=== PATIENT | female | born 1980 | race Caucasian/White ===

== ENCOUNTER 2016-10-31 12:52 | Inpatient (IN) | payer OTHER ==
[2016-10-31] VITALS (8 sets, daily range): BP systolic 124–140; BP diastolic 80–92
[~2016-10-31] VITALS: Ht 165.1 cm; Wt 81.6 kg
--- NOTE | ~2016-10-31 | PR ---
[place], [place] PROGRESS NOTE NAME: TARIK JACKSON [facility] #: [id number] UNIT #: [id number] ROOM: [place] [address] DOCTOR: EFRA ESPINOSA MD BIRTHDATE: [birth year] DOS: 11/02/2016 DISCHARGE DIAGNOSES: 1. Prescription opioid medication abuse. 2. Drug overdose with Tylenol PM, did not reach toxic levels. 3. Opiate withdrawal with hallucinations, resolved. 4. The patient refused transfer to a psych facility. 5. Lumbar spondylosis and chronic back pain for which the patient has been on disability for a long time. 6. History of bronchial asthma. The patient presented to the Emergency Department when her brought her over because she confessed of taking 30 pills of Tylenol PM. Poison control was contacted who recommended sequenced Tylenol levels and treatment with N-acetylcysteine, which was later discontinued. Suicidal overdose with Tylenol, but only reached nontoxic levels in her blood. 9. Major depression, recurrent, evaluated by Dr. Morales and Dr. Wilson. 10. Hypokalemia, being treated with extra dose of potassium supplement. The patient was treated for suspected Tylenol PM intentional drug overdose for suicide attempt. The patient was treated on recommendations of Poison Control, buy her Tylenol levels never reached toxic levels as they peaked at 90, stayed below 100 and then started improving. Treatment was stopped with N-acetylcysteine and there were no signs of any liver toxicity. The patient with opioid withdrawal. According to the patient and her family, she took her one-month supply, which is 120 pills of Vicodin in less than 2 weeks and then ran out of medicines and apparently she was undergoing opioid withdrawal, which was followed and treated by Dr. Morales and ultimately she was seen by Dr. Freedom Wilson, the clinical psychologist. The patient was recommended to go to a psych facility for treatment prior to being discharged, but she refused. Some complaints of tongue swelling, which has completely resolved according to the patient and she is talking normally once she figured out that the tongue swelling may delay her discharge to home today. She was treated with IV Solu-Medrol. No obvious signs of any allergy. 11. Syncope. Chronic complaints of lower back pains and chronic pain syndrome for which she has been on Vicodin, which will not be prescribed to her anymore because of the opioid misuse. Chronic primary insomnia for which she was taking Ambien at home, which has been stopped again because of the medication abuse issue. Chronic generalized anxiety disorder for which patient was taking Klonopin on regular basis. The patient has been detoxified during her stay at the [place], [place] PROGRESS NOTE NAME: TARIK JACKSON UNIT #: [id number] ROOM: [place] [address] DOCTOR: JESÚS JORDAN,EFRA Barrera BIRTHDATE: [birth year] and she has no withdrawal symptoms anymore and she has been therefore cleared for discharge by Dr. Morales and Dr. Freedom Wilson as she is not suicidal and she is asymptomatic, no complaints of any palpitation, no chest pain. No GI or urinary symptoms. Hypokalemia today, which is improving, being treated with extra dose of potassium. Dr. Freedom Wilson and Dr. True Morales have both agreed to follow her as an outpatient. The patient has been written prescriptions for more than a month on all of her medications at the time of discharge, so that she does not run out of her routine medications, but her Vicodin, Klonopin and Ambien have been stopped. LABORATORY DATA: Urine drug screen was negative on admission signifying that she was not taking her medications as prescribed, and according to the patient's , the patient takes excessive doses of Ambien, Vicodin and Klonopin at home. Potassium level of 3.4, being addressed with extra potassium dose today. Normal serum electrolytes. Blood sugar 117, normal CBC. DISCHARGE MANAGEMENT: Amlodipine 5 mg a day, loratadine 10 mg a day, fluticasone inhalation daily, levothyroxine 25 mcg daily, Singulair 10 mg a day. Follow up with Dr. Freedom Wilson and follow with Dr. True Morales. EFRA ESPINOSA MD CM:PNTRANS 1846 2 EFRA ESPINOSA MD 11/03/16332 interface
--- NOTE | ~2016-10-31 | CON ---
[place], [place] REPORT OF CONSULTATION NAME: TARIK JACKSON UNIT #: [id number] ROOM: [place] [address] DOCTOR: ALIE PATTERSON MD BIRTHDATE: [birth year] DOS: 11/01/2016 CHIEF COMPLAINT: "I have been feeling so depressed." HISTORY OF PRESENT ILLNESS: This is a 36-year-old white female who was admitted due to an intentional overdose of Tylenol. The patient states that she has been feeling very depressed for several months despite being placed on Effexor, which has been ineffective. She endorsed poor sleep with difficulty falling asleep, sleep continuity disturbance, and glass worker awakening and voices that at times she may only get a few hours of sleep at night and can go days without sleep. When she awakens, she feels absolutely horrible with marked anergia, anhedonia, hopeless and helpless feelings, crying spells, and inability to cope. Most recently within the last week or two, she also endorses positive auditory hallucinations. She can hear the voices and they do frighten her, but she cannot totally make out what they are saying. Other than the Effexor, she voices no other medication trials, but is willing to allow me to adjust her medicines accordingly. PAST MEDICAL HISTORY: Remarkable for lumbar spondylosis, chronic back pain, and bronchial asthma. MENTAL STATUS: She is alert and oriented. Mood is very depressed. Affect is flat and blunted with constricted range. There is no azael or hypomania. She endorses positive auditory hallucinations. There is no voice delusion or paranoia. Memory is intact. DIAGNOSIS: Major depression, recurrent, with psychotic features. PLAN: I will discontinue the Effexor, monitor her blood pressure. We will go ahead and start on Remeron 15 mg at bedtime and Invega 3 mg in the morning to combat the psychotic symptoms. At this point in time, unless she dramatically improves, she would benefit from an inpatient stay at a general psych unit. ALIE PATTERSON MD CM:CONSTR:REPORT OF CONSULTATION 0939 11/01/16 1009 interface
--- NOTE | ~2016-10-31 | WRIGHTHP ---
[place], [place] PATIENT HISTORY AND PHYSICAL EXAM NAME: TARIK JACKSON [facility] #: [id number] UNIT #: [id number] ROOM: [place] [address] DOCTOR: EFRA ESPINOSA MD BIRTHDATE: [birth year] DOS: 10/31/2016 HISTORY OF PRESENT ILLNESS: The patient is a 36-year-old female who presented to the Emergency Department after her called for a help for the patient possibly taking 30 pills of Tylenol this morning. The patient was brought to the Emergency Department and Poison Control were called and Tylenol level was taken and came out to be 99 and she was started on acetylcysteine bolus over 1 hour and then infusion. While the patient was on 4-hour infusion, a repeat Tylenol level 4 hours after the first level had improved to 45 and Poison Control are not recommending any more treatment at this time. The patient is slightly groggy because she apparently took Tylenol PM, not regular Tylenol, and she has been admitted to ICU and being monitored closely. The patient states she did not have any significant chest pain, shortness of breath. No GI or urinary symptoms recently. REVIEW OF SYSTEMS: LUNGS: There is no increasing shortness of breath or wheezing. GASTROINTESTINAL: No nausea, vomiting, diarrhea or constipation. CARDIOVASCULAR: No palpitations or chest pains. SOCIAL HISTORY: , lives at home with her . Does have smoking history of cigarettes. Denies any alcohol or drug abuse. FAMILY HISTORY: Noncontributory. HOME MEDICATIONS: Vicodin, Klonopin, Ambien, albuterol inhaler, levothyroxine, venlafaxine, amlodipine, Singulair. PHYSICAL EXAMINATION: GENERAL: Alert and oriented, but slightly confused occasionally, in no visible distress. HEENT AND NECK: Extraocular movements are intact. Sclerae are anicteric. Oral mucosa is moist and clean. No obvious facial weakness. Neck is supple without any lymphadenopathy. No thyromegaly. No JVD. No carotid arterial bruits. LUNGS: Clear to auscultation. No wheezing. No rhonchi. CARDIOVASCULAR SYSTEM: Heart rate is regular in rate and rhythm. S1 and S2 normally audible. No significant murmur or any other abnormal cardiac sounds. ABDOMEN: Soft, nontender. No obvious organomegaly. Bowel sounds are present. No obvious herniation. EXTREMITIES: Without significant cyanosis or edema. Warm to touch. CENTRAL NERVOUS SYSTEM: Alert and oriented x 3. Cranial nerves II-XII are intact. Speech is normal. The patient is able to move all extremities. Normal muscle strength. Deep tendon reflexes are equal on both sides. Plantars were downgoing. LABORATORY DATA: Tylenol level improved to 45 from 99 at admission. Lactic acid level elevated to 4, repeat level normal at 1.5. Normal CBC. Salicylate level normal at 4.1. CMP with blood sugar of 129, potassium of 3.1, otherwise normal. Alcohol level was normal, undetectable. IMPRESSION AND PLAN: [place], [place] PATIENT HISTORY AND PHYSICAL EXAM NAME: TARIK JACKSON UNIT #: [id number] ROOM: [place] [address] DOCTOR: EFRA ESPINOSA MD BIRTHDATE: [birth year] 1. The patient presenting with drug overdose with Tylenol PM, slightly drowsy, otherwise, she does wake up and is able to answer questions. The patient approximately thinks she had taken 30 pills of Tylenol PM, although Poison Control was consulted and they do not recommend any further treatment to be continued since she has never reached a toxic level of 150+. Her Tylenol levels were at 99 and had dropped to 45 now. The patient is being watched closely in the ICU and she in the Emergency Department for drug overdose. Dr. Morales, the psychiatrist, and Dr. Freedom Wilson from [facility] have also been consulted. Plan is to move her to behavioral health unit once she is completely recovered. I am monitoring her pulse oximetry, respiratory and heart rates very closely. 2. Suspected liver toxicity from Tylenol overdose less likely because she never reached the toxic levels of Tylenol. I have consulted Dr. Schaeffer, the inspector watch assembly, to get an opinion. 3. History of chronic lower back pains, lumbar spondylosis, for which she was on Vicodin at home. 4. History of bronchial asthma with recent acute bronchitis. The patient continued on bronchodilators. EFRA ESPINOSA MD CM:HISPHYS:PATIENT HISTORY AND PHYSICAL EXAMINATION [id number] EFRA ESPINOSA MD 11/01/16 0250 interface
--- NOTE | ~2016-10-31 | PR ---
[place], [place] PROGRESS NOTE NAME: TARIK JACKSON UNIT #: [id number] ROOM: [place] [address] DOCTOR: EFRA ESPINOSA MD BIRTHDATE: [birth year] DOS: 11/01/2016 SUBJECTIVE: I saw the patient yesterday, I was unable to dictate the note. The patient is awake, alert, but slightly confused. OBJECTIVE: GENERAL APPEARANCE: The patient is alert and oriented x 3, in no visible distress. VITAL SIGNS: Blood pressure 142/80, heart rate of 80 beats per minute, breathing normally, afebrile. HEENT AND NECK: Exam within normal limits. CARDIOVASCULAR SYSTEM: Heart rate is regular in rate and rhythm. S1 and S2 normally audible. LUNGS: Clear to auscultation. ABDOMEN: Soft, nontender. No obvious organomegaly. Bowel sounds are present. EXTREMITIES: Without significant cyanosis or edema. IMPRESSION: 1. The patient with apparently opiate withdrawal from taking overdosing on her prescribed Vicodin at home and then she ran out of the medication prior to coming to the hospital with hallucinations resulting from opiate withdrawal, discussed with Dr. Freedom Wilson and Dr. Morales. 2. History of chronic lower back pains and lumbar spondylosis for which she was taking Vicodin at home. 3. Chronic primary insomnia for which patient was taking Ambien at home. 4. Generalized anxiety disorder for which patient was taking Klonopin on regular basis at home. 5. Tylenol PM overdose with Tylenol levels not getting to any toxic levels, so her treatment was stopped in consultation with the [facility]. 6. Acute bronchitis, treated and improved. EFRA ESPINOSA MD CM:PNTRANS 1947 7 EFRA ESPINOSA MD 11/03/169 interface
--- NOTE | ~2016-10-31 | PR ---
[place], [place] [facility]GRESS [id number] #: [id number] ROOM: [place] [address] DOCTOR: FRANCISCA HOLLIS,SALIMA (LEEANNE) BIRTHDATE: [birth year] DOS: 11/02/2016 SUBJECTIVE: At the present time, this patient is no longer complaining of hearing voices. She does not appear to be having any type of auditory or visual hallucinations and is much more lucid than she was yesterday. Apparently, she was having some hallucinations secondary to opioid withdrawal. She had taken significant amounts of opiates earlier in the month and when she ran out she went into withdrawal and started to hallucinate. At the present time, she denies any suicidal ideation or plan. She had been agitated earlier in the day and was given Geodon, but throughout the day she improved significantly. She denies any suicidal ideation or plan, and refuses any psychiatric admission or admission to any substance abuse unit. I discussed discharge with Dr. Garces. If she is no longer suicidal at the time of her discharge, her pink slip should be eliminated since she is not a danger to herself or others. She does live with her and he wants to take care of her and bring her for outpatient therapy. She may need a pain management clinic since she is taking significant amounts of Vicodin for pain. DIAGNOSES: 1. Opiate withdrawal delirium. 2. Major depressive disorder. SALIMA ESPINOSA ED.D CM:PNHELGA 1703 [id number] EFRA ESPINOSA ED.D (BOB) 11/03/16 0234 interface
--- NOTE | ~2016-10-31 | CON ---
[place], [place] REPORT OF CONSULTATION [id number] #: [id number] ROOM: [place] [address] DOCTOR: SALIMA ESPINOSA ED.D (LEEANNE) BIRTHDATE: [birth year] DOS: 11/01/2016 HISTORY OF PRESENT ILLNESS: The patient is a 36-year-old female referred by Dr. Garces following an apparent suicide attempt. At the present time, this patient is in the Intensive Care Unit at [facility]. She is and I interviewed this patient twice. During the second interview, her was present along with her father and her brother. This patient's family physician is Dr. Garces. Her medical history is pertinent for chronic pain and insomnia. Apparently, she took 30-50 sleeping pills or opiates. This is questionable; however, she was prescribed a significant number of Vicodin on 10/08/2016, and she took all those medications within the first 2 weeks of the month. According to her and the patient, she has a tendency to take too many of her medications. Approximately 7 days ago, she ran out of her medications and began hallucinating several days thereafter. She states that she still feels suicidal, but I believe her major problem is opiate withdrawal. I did recommend she follow up in the [facility] here at the hospital. She will remain in the Intensive Care Unit as long as she continues to state that she is suicidal. Her family and the patient overall in agreement this patient needed rehabilitation. DIAGNOSES: 1. Opiate withdrawal, delirium. 2. Major depressive disorder, recurrent. RECOMMENDATIONS: This patient should be treated for her opiate withdrawal and subsequent followup for treatment of her opiate addiction. Thank you very much for this consult. SALIMA ESPINOSA ED.D CM:CONSTR:REPORT OF CONSULTATION 1624 11/02/16 0204 interface
[~2016-10-31 12:52] MED LIST: ACCUNEB 0.1.25 MG/1 INH; ALBUTEROL0.09 MG/Ac INH; AMBIEN10 MG PO; ANAPROX DS550 MG PO; CLARITIN10 MG PO; CLONAZEPAM1 MG PO; COMBIVENT AER RES; COMBIVENT1 ARO IH; DAYPRO600 M1 PO; EFFEXOR75 MG PO; FLEXERIL10 MG PO; FLEXERIL5 MG PO; HYDROCO/APAP TAB 7.5; KLONOPIN1 MG PO; LEVOTHYROXIN0.025 M1 PO; MOTRIN800 MG PO; PEN-VK500 MG PO; PERCOCET 325 MG1 TA2 PO; PERCOCET 325 MG1 TA7 PO; QVAR 80MCG/INH7.3 G1 IH; QVAR40 MCG INH; ROBAXIN750 MG PO; SOMA350 MG PO; SYNTHROID0.088 MG PO; TRAMADOL HCL50 MG PO; TRI-PREVIFEM 351 TAB PO; ULTRAM50 MG PO
[2016-10-31 13:25] LABS: BASO % 0.4 % (0.0-1.0); EOS % 0.2 % (1.0-4.0); HEMATOCRIT 43.2 % (37.0-47.0); HEMOGLOBIN 14.6 g/dl (12.0-16.0); LYMPH # 3.1 10*3/uL (1.3-4.4); MEAN CELL VOLUME 99.3 fl (81.0-99.0); MEAN CORPUSCULAR HGB 33.6 pg (27.0-31.0); MEAN CORPUSCULAR HGB CONC 33.8 g/dl (33.0-37.0); MEAN PLATELET VOLUME 10.3 fl (9.6-12.3); MONO # 0.5 10*3/uL (0.1-1.0); MONO % 5.2 % (3.0-9.0); NEUT # 6.1 10*3/uL (2.3-7.9); NEUT % 61.9 % (47.0-73.0); PLATELET COUNT AUTOMATED 379 10*3/uL (130-400); RED BLOOD COUNT 4.35 10*6/uL (4.10-5.10); WHITE BLOOD COUNT 9.8 10*3/uL (4.8-10.8)
[2016-10-31 13:35] LABS: BILIRUBIN NEGATIVE (NEGATIVE); BLOOD NEGATIVE (NEGATIVE); CLARITY CLOUDY (CLEAR); COLOR YELLOW (YELLOW); GLUCOSE NEGATIVE (NEGATIVE); KETONE NEGATIVE (NEGATIVE); LEUKO ESTERASE NEGATIVE (NEGATIVE); NITRITE NEGATIVE (NEGATIVE); PROTEIN TRACE (NEGATIVE); SPECIFIC GRAVITY >= 1.030 (1.005-1.030); UROBILINOGEN 0.2 E.U./dl (0.2-1.0)
[2016-10-31 13:44] LABS: ALKALINE PHOSPHATASE 45 U/L (45-117); BILIRUBIN, TOTAL 0.3 mg/dl (0.2-1.0); BUN 11 mg/dl (7-24); CARBON DIOXIDE 19 mmol/L (21-32); CHLORIDE 109 mmol/L (98-107); EST GLOM FILT AFRICAN AMERICAN > 60 ml/min; GLUCOSE 129 mg/dL (65-99); POTASSIUM 3.1 mmol/L (3.5-5.1); SGOT/AST 21 IU/L (3-35); SGPT/ALT 25 U/L (12-78); SODIUM 142 mmol/L (136-145); TOTAL PROTEIN 7.6 gm/dL (6.4-8.2)
[2016-10-31 13:55] LABS: B-hCG (QUALITATIVE) NEGATIVE (NEGATIVE)
[2016-10-31 14:07] LABS: BACTERIA 1+; MUCOUS 1+; URINE REFLEX COMMENT NO (NO)
[2016-10-31 15:46] LABS: LA>2 REFLEX 2 HR DRAW NOW
[2016-10-31] MEDS ORDERED: EFFEXOR XR75 MG PO (17:11)
[2016-10-31] MEDS ORDERED: SINGULAIR10 M1 PO (17:41)
[2016-10-31] MEDS ORDERED: AMLODIPINE BESYL5 MG PO (17:41)
[2016-10-31] MEDS ORDERED: VICO75300 PO (17:42)
[2016-10-31] MEDS ORDERED: NOVAPLUS V0.09 MG/Ac INH (17:43)
[2016-11-01] VITALS: BP 120/72
[2016-11-01 00:14] LABS: URINE AMPHETAMINES < 1000 (1000ng/ml); URINE BARBITURATES < 200 (200ng/ml); URINE COCAINE < 300 (300ng/ml)
[2016-11-01 04:00] VITALS: BP 120/57
[2016-11-01 06:33] LABS: BASO % 0.5 % (0.0-1.0); EOS # 0.1 10*3/uL (0.0-0.4); EOS % 0.7 % (1.0-4.0); HEMATOCRIT 39.8 % (37.0-47.0); HEMOGLOBIN 13.2 g/dl (12.0-16.0); LYMPH # 2.6 10*3/uL (1.3-4.4); LYMPH % 32.1 % (27.0-41.0); MEAN CELL VOLUME 101.5 fl (81.0-99.0); MEAN CORPUSCULAR HGB 33.7 pg (27.0-31.0); MEAN CORPUSCULAR HGB CONC 33.2 g/dl (33.0-37.0); MEAN PLATELET VOLUME 10.4 fl (9.6-12.3); MONO # 0.4 10*3/uL (0.1-1.0); MONO % 4.8 % (3.0-9.0); NEUT % 61.5 % (47.0-73.0); PLATELET COUNT AUTOMATED 289 10*3/uL (130-400); RED BLOOD COUNT 3.92 10*6/uL (4.10-5.10); RED CELL DISTRI WIDTH 12.3 % (0-14.5); WHITE BLOOD COUNT 8.1 10*3/uL (4.8-10.8)
[2016-11-01 06:43] LABS: ALBUMIN 3.4 gm/dl (3.1-4.5); ALKALINE PHOSPHATASE 38 U/L (45-117); BILIRUBIN, DIRECT < 0.1 mg/dL (0.0-0.2); BILIRUBIN, TOTAL 0.3 mg/dl (0.2-1.0); BUN 8 mg/dl (7-24); CARBON DIOXIDE 23 mmol/L (21-32); CHLORIDE 111 mmol/L (98-107); EST GLOM FILT AFRICAN AMERICAN > 60 ml/min; GLUCOSE 103 mg/dL (65-99); POTASSIUM 3.6 mmol/L (3.5-5.1); SGOT/AST 23 IU/L (3-35); SGPT/ALT 24 U/L (12-78); SODIUM 143 mmol/L (136-145); TOTAL PROTEIN 6.4 gm/dL (6.4-8.2)
[2016-11-01 08:00] VITALS: BP 137/88
[2016-11-01 12:00] VITALS: BP 133/71
[2016-11-01 16:00] VITALS: BP 112/72
[2016-11-01 20:00] VITALS: BP 115/82
[2016-11-02] VITALS: BP 135/83
[2016-11-02 04:00] VITALS: BP 102/68
[2016-11-02 05:50] LABS: BUN 8 mg/dl (7-24); CARBON DIOXIDE 25 mmol/L (21-32); CHLORIDE 109 mmol/L (98-107); EST GLOM FILT AFRICAN AMERICAN > 60 ml/min; GLUCOSE 117 mg/dL (65-99); POTASSIUM 3.4 mmol/L (3.5-5.1); SODIUM 145 mmol/L (136-145)
[2016-11-02 05:53] LABS: BASO % 0.5 % (0.0-1.0); EOS # 0.1 10*3/uL (0.0-0.4); EOS % 0.7 % (1.0-4.0); LYMPH # 2.8 10*3/uL (1.3-4.4); LYMPH % 36.4 % (27.0-41.0); MEAN CORPUSCULAR HGB CONC 33.3 g/dl (33.0-37.0); MEAN PLATELET VOLUME 10.4 fl (9.6-12.3); MONO # 0.5 10*3/uL (0.1-1.0); MONO % 6.6 % (3.0-9.0); NEUT # 4.3 10*3/uL (2.3-7.9); NEUT % 55.5 % (47.0-73.0); PLATELET COUNT AUTOMATED 252 10*3/uL (130-400); RED BLOOD COUNT 3.53 10*6/uL (4.10-5.10); RED CELL DISTRI WIDTH 12.5 % (0-14.5); WHITE BLOOD COUNT 7.7 10*3/uL (4.8-10.8)
[2016-11-02 08:00] VITALS: BP 102/68
[2016-11-02 12:00] VITALS: BP 117/76
[2016-11-02 15:39] VITALS: BP 142/80
[2016-11-02] MEDS ORDERED: CLARITIN10 MG PO (18:14)
[2016-11-02] MEDS ORDERED: NOVAPLUS V0.09 MG/Ac INH (18:14)
[2016-11-02] MEDS ORDERED: EFFEXOR XR75 MG PO (18:14)
[2016-11-02] MEDS ORDERED: AMLODIPINE BESYL5 MG PO (18:14)
== END 2016-11-02 18:47 | disposition home or self-care (01) | DRG 918 ==
LOC: ED 12:52 → ICCU 14:03 → EDHOLD 14:03 → ICCU 14:26
PROVIDERS: Emergency Medicine; Internal Medicine
DX: T39.1X2A Poisoning by 4-Aminophenol derivatives, intentional self-harm, initial encounter (principal); F33.3 Major depressive disorder, recurrent, severe with psychotic symptoms; F11.23 Opioid dependence with withdrawal; J45.909 Unspecified asthma, uncomplicated; M47.896 Other spondylosis, lumbar region; E87.6 Hypokalemia; G89.4 Chronic pain syndrome; F51.04 Psychophysiologic insomnia; F41.1 Generalized anxiety disorder; J20.9 Acute bronchitis, unspecified; Y92.89 Other specified places as the place of occurrence of the external cause

== ENCOUNTER → 2016-12-21 | Outpatient (CLI) | payer OTHER ==
[~2016-12-21] MED LIST changes: +AMLODIPINE BESYL5 MG PO; +EFFEXOR XR75 MG PO; +NOVAPLUS V0.09 MG/Ac INH; +SINGULAIR10 M1 PO; +VICO75300 PO
== END | disposition home or self-care (01) ==
LOC: RESCLI 13:04
DX: F32.3 Major depressive disorder, single episode, severe with psychotic features (principal); G89.28 Other chronic postprocedural pain; Z91.5 Personal history of self-harm; Z72.0 Tobacco use

== ENCOUNTER → 2017-02-01 | Outpatient (CLI) | payer OTHER | END | disposition home or self-care (01) | LOC: RESCLI 01:04 | DX: R00.0 Tachycardia, unspecified (principal); G89.28 Other chronic postprocedural pain; E03.9 Hypothyroidism, unspecified; E55.9 Vitamin D deficiency, unspecified; J30.2 Other seasonal allergic rhinitis; I10 Essential (primary) hypertension; F33.9 Major depressive disorder, recurrent, unspecified; Z71.6 Tobacco abuse counseling; Z72.0 Tobacco use ==

== ENCOUNTER → 2017-02-10 | Outpatient (CLI) | payer OTHER | END | disposition home or self-care (01) | LOC: RAD 14:08 | DX: M47.817 Spondylosis without myelopathy or radiculopathy, lumbosacral region (principal) ==

== ENCOUNTER → 2017-03-07 | Outpatient (CLI) | payer OTHER | END | disposition home or self-care (01) | LOC: RESCLI 02:37 | DX: I10 Essential (primary) hypertension (principal); R00.0 Tachycardia, unspecified; G89.28 Other chronic postprocedural pain; E03.9 Hypothyroidism, unspecified; E55.9 Vitamin D deficiency, unspecified; F33.9 Major depressive disorder, recurrent, unspecified; J45.909 Unspecified asthma, uncomplicated; Z71.6 Tobacco abuse counseling; Z72.0 Tobacco use ==

== ENCOUNTER 2017-05-26 16:27 | Emergency (ER) | payer OTHER ==
[~2017-05-26] VITALS: Ht 165.1 cm; Wt 90.7 kg
[2017-05-26] MEDS ORDERED: NAPROSYN500 MG PO (16:45)
== END 2017-05-26 17:31 | disposition home or self-care (01) ==
LOC: ED 16:27
DX: S20.212A Contusion of left front wall of thorax, initial encounter (principal); W18.39XA Other fall on same level, initial encounter; Y93.89 Activity, other specified; Y92.89 Other specified places as the place of occurrence of the external cause; Y99.8 Other external cause status; R03.0 Elevated blood-pressure reading, without diagnosis of hypertension

== ENCOUNTER 2017-05-31 09:32 | Emergency (ER) | payer OTHER ==
[~2017-05-31] VITALS: Ht 170.1 cm; Wt 90.7 kg
[~2017-05-31 09:32] MED LIST changes: +NAPROSYN500 MG PO
== END 2017-05-31 10:13 | disposition left against medical advice (07) ==
LOC: ED 09:32
DX: R07.9 Chest pain, unspecified (principal); I10 Essential (primary) hypertension; Z79.899 Other long term (current) drug therapy

== ENCOUNTER → 2017-06-21 | Outpatient (CLI) | payer OTHER | END | disposition home or self-care (01) | LOC: RESCLI 03:10 | DX: R00.0 Tachycardia, unspecified (principal); G89.28 Other chronic postprocedural pain; E03.9 Hypothyroidism, unspecified; E55.9 Vitamin D deficiency, unspecified; J30.2 Other seasonal allergic rhinitis; I10 Essential (primary) hypertension; F33.9 Major depressive disorder, recurrent, unspecified; F17.200 Nicotine dependence, unspecified, uncomplicated ==

== ENCOUNTER → 2017-06-28 | Outpatient (CLI) | payer OTHER | LOC: RESCLI 01:23 | DX: M51.26 Other intervertebral disc displacement, lumbar region (principal); R00.0 Tachycardia, unspecified; G89.28 Other chronic postprocedural pain; E03.9 Hypothyroidism, unspecified; E55.9 Vitamin D deficiency, unspecified; J30.2 Other seasonal allergic rhinitis; I10 Essential (primary) hypertension; F33.9 Major depressive disorder, recurrent, unspecified ==

== ENCOUNTER → 2017-07-06 | Outpatient (CLI) | payer OTHER | END | disposition home or self-care (01) | LOC: MRI 07-01 08:00 | DX: M51.26 Other intervertebral disc displacement, lumbar region (principal); M51.27 Other intervertebral disc displacement, lumbosacral region; M47.896 Other spondylosis, lumbar region ==

== ENCOUNTER → 2019-01-11 | Outpatient (CLI) | payer OTHER ==
[2019-01-11 19:36] LABS: HEMATOCRIT 45.4 % (37.0-47.0); HEMOGLOBIN 14.9 g/dl (12.0-16.0); MEAN CELL VOLUME 104.4 fl (81.0-99.0); MEAN CORPUSCULAR HGB 34.3 pg (27.0-31.0); MEAN CORPUSCULAR HGB CONC 32.8 g/dl (33.0-37.0); MEAN PLATELET VOLUME 9.5 fl (9.6-12.3); RED BLOOD COUNT 4.35 10*6/uL (4.10-5.10); RED CELL DISTRI WIDTH 11.7 % (0-14.5); WHITE BLOOD COUNT 10.5 10*3/uL (4.8-10.8)
[2019-01-11 19:47] LABS: INTERNATIONAL NORM RATIO 0.9 (2.0-3.5)
[2019-01-11 20:05] LABS: ALBUMIN 3.9 gm/dl (3.1-4.5); ALKALINE PHOSPHATASE 74 U/L (45-117); BUN 8 mg/dl (7-24); CHLORIDE 106 mmol/L (98-107); CHOLESTEROL 216 mg/dL (<200); CREATININE 0.95 mg/dL (0.55-1.02); FREE T4 0.62 ng/dl (0.76-1.46); HDL CHOLESTEROL 24 mg/dl (40-60); LDL CHOLESTEROL 113 mg/dL (9-159); POTASSIUM 4.1 mmol/L (3.5-5.1); SGOT/AST 24 IU/L (3-35); SGPT/ALT 44 U/L (12-78); SODIUM 139 mmol/L (136-145); TOTAL PROTEIN 7.8 gm/dL (6.4-8.2); TRIGLYCERIDES 394 mg/dl (<150); VLDL CHOLESTEROL 79 mg/dL (6-40)
== END | disposition home or self-care (01) ==
LOC: LAB 18:54
PROVIDERS: Family Medicine
DX: R06.02 Shortness of breath (principal); E55.9 Vitamin D deficiency, unspecified; J45.909 Unspecified asthma, uncomplicated; R53.83 Other fatigue; F17.200 Nicotine dependence, unspecified, uncomplicated

== ENCOUNTER 2019-09-20 19:21 | Emergency (ER) | payer OTHER ==
[~2019-09-20] VITALS: Ht 165.1 cm; Wt 86.2 kg
[2019-09-20 19:58] LABS: URINE AMPHETAMINES < 1000 (1000ng/ml); URINE BARBITURATES < 200 (200ng/ml); URINE BENZODIAZEPINES < 200 (200ng/ml); URINE CANNABINOIDS (THC) < 50 (50ng/ml); URINE COCAINE < 300 (300ng/ml); URINE METHADONE < 300 (300ng/ml); URINE OPIATES > 300 (300ng/ml)
[2019-09-20 19:59] LABS: URINE PHENCYCLIDINE < 25 (25ng/ml)
[2019-09-20 20:02] LABS: BASO % 0.3 % (0.0-1.0); EOS % 0.1 % (1.0-4.0); HEMATOCRIT 44.4 % (37.0-47.0); HEMOGLOBIN 14.9 g/dl (12.0-16.0); LYMPH # 3.1 10*3/uL (1.3-4.4); LYMPH % 25.9 % (27.0-41.0); MEAN CELL VOLUME 101.4 fl (81.0-99.0); MEAN CORPUSCULAR HGB CONC 33.6 g/dl (33.0-37.0); MEAN PLATELET VOLUME 9.7 fl (9.6-12.3); MONO # 0.7 10*3/uL (0.1-1.0); MONO % 5.7 % (3.0-9.0); NEUT # 8.1 10*3/uL (2.3-7.9); NEUT % 67.6 % (47.0-73.0); PLATELET COUNT AUTOMATED 333 10*3/uL (130-400); RED BLOOD COUNT 4.38 10*6/uL (4.10-5.10); RED CELL DISTRI WIDTH 12.4 % (0-14.5)
[2019-09-20 20:03] LABS: BACTERIA 2+; BILIRUBIN NEGATIVE (NEGATIVE); BLOOD 1+ (NEGATIVE); CLARITY CLEAR (CLEAR); COLOR YELLOW (YELLOW); GLUCOSE NEGATIVE (NEGATIVE); KETONE NEGATIVE (NEGATIVE); LEUKO ESTERASE TRACE (NEGATIVE); NITRITE NEGATIVE (NEGATIVE); SPECIFIC GRAVITY 1.025 (1.005-1.030); UROBILINOGEN 0.2 E.U./dl (0.2-1.0); WBC 16-20 wbc/hpf (0-5)
[2019-09-20 20:15] LABS: BUN 6 mg/dl (7-24); CHLORIDE 106 mmol/L (98-107); CREATININE 1.16 mg/dL (0.55-1.02); SODIUM 136 mmol/L (136-145)
[2019-09-20 20:28] LABS: ACETAMINOPHEN (TYLENOL) < 5.0 ug/ml (10-30); ETHYL ALCOHOL < 3.0 mg/dl (<3)
== END 2019-09-21 01:31 | disposition home health service (06) ==
LOC: ED 19:21
PROVIDERS: Emergency Medicine
DX: F31.2 Bipolar disorder, current episode manic severe with psychotic features (principal); J45.909 Unspecified asthma, uncomplicated; M19.90 Unspecified osteoarthritis, unspecified site; F17.200 Nicotine dependence, unspecified, uncomplicated; Z79.899 Other long term (current) drug therapy

== ENCOUNTER 2020-07-06 13:48 | Emergency (ER) | payer OTHER ==
[~2020-07-06] VITALS: Ht 167.6 cm; Wt 104.3 kg
[2020-07-06 14:29] LABS: BASO # 0.1 10*3/uL (0.0-0.1); BASO % 0.5 % (0.0-1.0); EOS # 0.1 10*3/uL (0.0-0.4); EOS % 1.3 % (1.0-4.0); HEMATOCRIT 41.6 % (37.0-47.0); LYMPH # 4.1 10*3/uL (1.3-4.4); LYMPH % 41.5 % (27.0-41.0); MEAN CELL VOLUME 97.7 fl (81.0-99.0); MEAN CORPUSCULAR HGB CONC 31.7 g/dl (33.0-37.0); MEAN PLATELET VOLUME 9.3 fl (9.6-12.3); MONO # 0.4 10*3/uL (0.1-1.0); MONO % 4.3 % (3.0-9.0); NEUT # 5.1 10*3/uL (2.3-7.9); PLATELET COUNT AUTOMATED 315 10*3/uL (130-400); RED BLOOD COUNT 4.26 10*6/uL (4.10-5.10); RED CELL DISTRI WIDTH 12.9 % (0-14.5); WHITE BLOOD COUNT 9.8 10*3/uL (4.8-10.8)
[2020-07-06 14:49] LABS: ALBUMIN 3.3 gm/dl (3.1-4.5); ALKALINE PHOSPHATASE 70 U/L (45-117); BUN 11 mg/dl (7-24); CHLORIDE 108 mmol/L (98-107); CREATININE 0.86 mg/dL (0.55-1.02); LIPASE 49 U/L (73-393); POTASSIUM 3.7 mmol/L (3.5-5.1); SGOT/AST 27 IU/L (3-35); SGPT/ALT 48 U/L (12-78); SODIUM 138 mmol/L (136-145); TOTAL PROTEIN 6.8 gm/dL (6.4-8.2)
[2020-07-06 14:50] LABS: TROPONIN I < 0.015 ng/ml (<0.045)
[2020-07-06 14:58] LABS: ACT PARTIAL THROMBO TIME 25.1 SECONDS (20.0-32.1); INTERNATIONAL NORM RATIO 0.9 (2.0-3.5)
== END 2020-07-06 16:32 | disposition home or self-care (01) ==
LOC: ED 13:48
PROVIDERS: Nurse Practitioner Family
DX: R07.9 Chest pain, unspecified (principal); R07.81 Pleurodynia; Z79.899 Other long term (current) drug therapy

== ENCOUNTER 2021-05-03 22:04 | Emergency (ER) | payer OTHER ==
[~2021-05-03] VITALS: Ht 165.1 cm; Wt 98.9 kg
== END 2021-05-04 02:00 | disposition left against medical advice (07) ==
LOC: ED 22:04
DX: R05 Cough (principal); R53.83 Other fatigue; Z53.21 Procedure and treatment not carried out due to patient leaving prior to being seen by health care provider

== ENCOUNTER → 2021-06-22 | Outpatient (CLI) | payer OTHER ==
[2021-06-22 15:29] LABS: BASO # 0.1 10*3/uL (0.0-0.1); BASO % 0.6 % (0.0-1.0); EOS # 0.1 10*3/uL (0.0-0.4); EOS % 1.3 % (1.0-4.0); HEMATOCRIT 43.8 % (37.0-47.0); LYMPH # 2.7 10*3/uL (1.3-4.4); LYMPH % 34.6 % (27.0-41.0); MEAN CELL VOLUME 99.3 fl (81.0-99.0); MEAN CORPUSCULAR HGB 31.7 pg (27.0-31.0); MEAN PLATELET VOLUME 9.4 fl (9.6-12.3); MONO # 0.4 10*3/uL (0.1-1.0); MONO % 4.6 % (3.0-9.0); NEUT # 4.6 10*3/uL (2.3-7.9); NEUT % 58.6 % (47.0-73.0); PLATELET COUNT AUTOMATED 313 10*3/uL (130-400); RED BLOOD COUNT 4.41 10*6/uL (4.10-5.10); RED CELL DISTRI WIDTH 12.9 % (0-14.5); WHITE BLOOD COUNT 7.8 10*3/uL (4.8-10.8)
[2021-06-22 15:59] LABS: ALBUMIN 3.6 gm/dl (3.1-4.5); BUN 8 mg/dl (7-24); CHLORIDE 110 mmol/L (98-107); CHOLESTEROL 212 mg/dL (<200); CREATININE 0.69 mg/dL (0.55-1.02); POTASSIUM 3.8 mmol/L (3.5-5.1); SGOT/AST 23 IU/L (3-35); SGPT/ALT 42 U/L (12-78); SODIUM 139 mmol/L (136-145); TRIGLYCERIDES 436 mg/dl (<150)
[2021-06-22 16:07] LABS: ALKALINE PHOSPHATASE 66 U/L (45-117); TOTAL PROTEIN 7.4 gm/dL (6.4-8.2)
== END | disposition home or self-care (01) ==
LOC: LAB 15:07
PROVIDERS: ATTEND Registered Nurse Psychiatric/Mental Health
DX: F31.9 Bipolar disorder, unspecified (principal)

== ENCOUNTER → 2021-07-29 | Outpatient (CLI) | payer OTHER | END | disposition home or self-care (01) | LOC: RAD 12:12 | PROVIDERS: ATTEND Family Medicine | DX: R05.9 Cough, unspecified (principal); R09.81 Nasal congestion ==

== ENCOUNTER → 2022-05-24 | Outpatient (CLI) | payer OTHER ==
[2022-05-24 19:22] LABS: ALKALINE PHOSPHATASE 56 U/L (45-117); BUN 13 mg/dl (7-24); CHLORIDE 104 mmol/L (98-107); CHOLESTEROL 234 mg/dL (<200); CREATININE 0.81 mg/dL (0.55-1.02); LDL CHOLESTEROL 147 mg/dL (9-159); POTASSIUM 3.9 mmol/L (3.5-5.1); SGOT/AST 15 IU/L (3-35); SGPT/ALT 19 U/L (12-78); SODIUM 136 mmol/L (136-145); TOTAL PROTEIN 7.3 gm/dL (6.4-8.2); TRIGLYCERIDES 352 mg/dl (<150)
[2022-05-24 19:24] LABS: TOTAL PROTEIN 7.4 gm/dL (6.4-8.2); VALPROIC ACID (DEPAKENE) 27.8 ug/ml (50-100)
== END | disposition home or self-care (01) ==
LOC: LAB 18:41
PROVIDERS: Registered Nurse Psychiatric/Mental Health; ATTEND Family Medicine
DX: Z51.81 Encounter for therapeutic drug level monitoring (principal); E74.9 Disorder of carbohydrate metabolism, unspecified; E78.00 Pure hypercholesterolemia, unspecified; Z79.899 Other long term (current) drug therapy

== ENCOUNTER → 2022-06-25 | Outpatient (CLI) | payer OTHER ==
[2022-06-25 12:37] LABS: URINE AMPHETAMINES < 1000 (1000ng/ml); URINE BARBITURATES < 200 (200ng/ml); URINE BENZODIAZEPINES < 200 (200ng/ml); URINE CANNABINOIDS (THC) < 50 (50ng/ml); URINE COCAINE < 300 (300ng/ml); URINE METHADONE < 300 (300ng/ml); URINE OPIATES > 300 (300ng/ml)
[2022-06-25 12:57] LABS: URINE PHENCYCLIDINE < 25 (25ng/ml)
[2022-06-26 08:07] LABS: HBSAG Negative (Negative); HEP B CORE AB, IGM Negative (Negative); HEPATITIS C ANTIBODY <0.1 (0.0-0.9)
== END ==
LOC: LAB 11:56
PROVIDERS: ATTEND Registered Nurse Psychiatric/Mental Health
DX: F32.A Depression, unspecified (principal); Z79.899 Other long term (current) drug therapy

== ENCOUNTER → 2025-04-09 | Outpatient (CLI) | payer OTHER | LOC: LAB 15:52 | PROVIDERS: ATTEND Obstetrics & Gynecology | DX: Z31.41 Encounter for fertility testing (principal) ==

== ENCOUNTER → 2025-05-06 | Outpatient (CLI) | payer OTHER | END | disposition home or self-care (01) | LOC: MAMMO 04-29 13:30 | PROVIDERS: ATTEND Family Medicine | DX: Z12.31 Encounter for screening mammogram for malignant neoplasm of breast (principal) ==

== ENCOUNTER 2025-07-08 12:23 | Emergency (ER) | payer OTHER ==
[~2025-07-08] VITALS: Wt 99.8 kg
[2025-07-08 12:55] LABS: BASO # 0.1 10*3/uL (0.0-0.1); BASO % 0.6 % (0.0-1.0); EOS # 0.1 10*3/uL (0.0-0.4); EOS % 0.9 % (1.0-4.0); MEAN CELL VOLUME 103.0 fl (81.0-99.0); MEAN CORPUSCULAR HGB 33.4 pg (27.0-31.0); MEAN PLATELET VOLUME 9.0 fl (9.6-12.3); MONO # 0.4 10*3/uL (0.1-1.0); MONO % 4.1 % (3.0-9.0); NEUT # 5.2 10*3/uL (2.3-7.9); NEUT % 49.3 % (47.0-73.0); NUCLEATED RED BLOOD CELL 0.0 % (0.0-0.0); NUCLEATED RED BLOOD CELL 0.0 10*3/uL (0.0-0.0); PLATELET COUNT AUTOMATED 346 10*3/uL (130-400); RED CELL DISTRI WIDTH 12.3 % (0-14.5)
[2025-07-08 13:13] LABS: BUN 10 mg/dl (9-23)
[2025-07-08] MEDS ORDERED: MAGNESIUM OXIDE 400 MG TAB PO ONE (13:20)
[2025-07-08] MEDS ORDERED: POTASSIUM CHLORIDE 20 MEQ TAB PO ONE (13:20)
== END 2025-07-08 15:32 | disposition home or self-care (01) ==
LOC: ED 12:23
PROVIDERS: Nurse Practitioner Family
DX: R07.89 Other chest pain (principal); E87.6 Hypokalemia; E83.42 Hypomagnesemia; R20.2 Paresthesia of skin; F31.9 Bipolar disorder, unspecified; M19.90 Unspecified osteoarthritis, unspecified site; J45.909 Unspecified asthma, uncomplicated